=== PATIENT | male | born 2000 | race Caucasian/White ===

== ENCOUNTER 2022-03-30 19:57 | Emergency (ER) | payer OTHER ==
[~2022-03-30] VITALS: Ht 182.9 cm; Wt 57.1 kg
[~2022-03-30 19:57] MED LIST: ALBU90OI61 INH; BENADRYL25 MG PO; Benadryl 50 mg50 MG PO; IBUP600 PO; METPRE4DP PO; Pepcid40 MG PO; Prednisone20 MG PO; SOLARCAINE COO127 GM TOP
[2022-03-30] MEDS ORDERED: AMOCLA875 PO (21:37)
== END 2022-03-30 22:00 | disposition home or self-care (01) ==
LOC: ER 19:57
DX: K08.89 Other specified disorders of teeth and supporting structures (principal); K02.9 Dental caries, unspecified; R68.84 Jaw pain; F17.200 Nicotine dependence, unspecified, uncomplicated
CPT/HCPCS: A9270

== ENCOUNTER 2025-04-24 16:58 | Emergency (ER) | payer OTHER ==
[~2025-04-24] VITALS: Ht 180.3 cm; Wt 56.7 kg
[~2025-04-24 16:58] MED LIST changes: +AMOCLA875 PO
[2025-04-24 17:07] VITALS: BP 150/57
== END 2025-04-24 17:15 | disposition home or self-care (01) ==
LOC: ER 16:58
DX: T22.10XA Burn of first degree of shoulder and upper limb, except wrist and hand, unspecified site, initial encounter (principal); T31.11 Burns involving 10-19% of body surface with 10-19% third degree burns; F17.200 Nicotine dependence, unspecified, uncomplicated; Z59.89 Other problems related to housing and economic circumstances
CPT/HCPCS: 99282